=== PATIENT | female | born 1945 | race Caucasian/White ===

== ENCOUNTER → 2016-09-05 | Outpatient (CLI) | payer OTHER ==
[~2016-09-05] MED LIST: ALEVE220 MG PO; ASPIRIN EC81 MG PO; FLAX SEED OIL1000 MG PO; HYDROCHLOROTH12.5 MG PO; ONE DAILY WOME1 EAC2 PO; TYLENOL EXTRA500 MG PO; VIACTIV SOFT C1 EACH PO; VITAMIN C WITH500 MG PO
[2016-09-05 14:56] LABS: HEMATOCRIT 44.8 % (33.0-46.0); HEMOGLOBIN 14.5 g/dL (10.0-15.0); MCHC 32.4 gm/dL (32.0-36.5); MCV 86.5 fl (83.0-98.0); MPV 8.5 fl (9.4-12.4); RBC 5.18 M/uL (3.50-5.50); RDW-CV 13.1 % (11.9-14.6); WBC 7.1 K/uL (4.0-11.0)
== END | disposition disaster alternative care site (69) ==
LOC: GOPD 08-30 10:30
PROVIDERS: Family Medicine
PROC: 0PS43ZZ Reposition Thoracic Vertebra, Percutaneous Approach (ICD-10-PCS; principal; 2016-09-05)
PROC: 0PU43JZ Supplement Thoracic Vertebra with Synthetic Substitute, Percutaneous Approach (ICD-10-PCS; 2016-09-05)
DX: S22.008A Other fracture of unspecified thoracic vertebra, initial encounter for closed fracture (principal); M54.6 Pain in thoracic spine; M54.5 Low back pain
CPT/HCPCS: C1713; J0690; J1956; J2001; J2250; J3010; J7030